=== PATIENT | female | born 1990 | race Caucasian/White ===

== ENCOUNTER 2017-10-27 05:26 | Emergency (ER) | payer SELFPAY ==
[2017-10-27] MEDS ORDERED: LIDOCAINE 1% INJ-PF (10 MG/ML) 30 ML SDV INJ ONE (06:25)
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
[2017-10-27] MEDS ORDERED: LORAZEPAM 0.5 MG TABLET PO ONE (06:41)
[2017-10-27] MEDS ORDERED: IBUPROFEN 800 MG TABLET PO ONE (06:56)
[2017-10-27 11:11] VITALS: BP 97/56
== END 2017-10-27 11:12 | disposition home or self-care (01) ==
LOC: ER 05:26
DX: S01.511A Laceration without foreign body of lip, initial encounter (principal); Y04.8XXA Assault by other bodily force, initial encounter; F17.210 Nicotine dependence, cigarettes, uncomplicated
CPT/HCPCS: 99284; J3490